=== PATIENT | male | born 1985 | race Caucasian/White ===

== ENCOUNTER → 2019-03-05 | Outpatient (REF) ==
--- NOTE | 2019-03-06 01:16 | REP ---
Clinical: Pain and disability Technique: AP, lateral, bilateral oblique and sunrise views right knee . Findings: The osseous structures and joint spaces are intact and normal. There is no evidence for acute fracture or dislocation. No joint effusion is appreciated. Surrounding soft tissues are unremarkable. No subcutaneous emphysema or radiodense foreign body. Impression: Normal examination. Electronically Signed by Shaun Beckford MD 03/06/2019 01:08 A
--- NOTE | 2019-03-06 01:45 | REP ---
Clinical: Pain and disability. Technique: AP, lateral, coned-down views of the lumbosacral spine. Findings: Straightening of normal lordosis is nonspecific. Alignment is maintained. No acute fracture / compression injury or subluxation. Minimal endplate sclerosis and disc space narrowing at L5-S1 with mild hypertrophic facet changes are suggested. Impression: Mild degenerative spondylosis at L5-S1. Electronically Signed by Shaun Beckford MD 03/06/2019 01:36 A
== END ==
LOC: M SMT 13:54
PROVIDERS: ATTEND Internal Medicine
DX: M51.36 Other intervertebral disc degeneration, lumbar region (principal)

== ENCOUNTER → 2024-01-24 | Outpatient (REF) | LOC: M PLAIMG 12:03 | PROVIDERS: ATTEND Internal Medicine | DX: R52 Pain, unspecified (principal) ==